=== PATIENT | female | born 1985 | race African-American/Black ===

== ENCOUNTER → 2020-04-10 16:47 | Outpatient (CLI) | payer OTHER, MEDICAID, SELFPAY ==
[2020-04-11 09:35] LABS: COVID19 Sendout NOT DETECTED (Not Detect)
== END ==
PROVIDERS: Visit Provider Physician Assistant
DX: Z11.59 Encounter for screening for other viral diseases (principal)
CPT/HCPCS: 87635

== ENCOUNTER → 2021-10-02 15:34 | Outpatient (CLI) | payer OTHER, MEDICAID, SELFPAY ==
--- NOTE | 2021-10-02 | DI.US.S_ITS ---
PROCEDURE: US PELVIC COMPLETE INDICATIONS: Excessive bleeding in the premenopausal period TECHNIQUE: Real-time scanning was performed of the pelvic organs, with image documentation. Additional endovaginal scanning was necessary due to incomplete visualization of the adnexal and endometrial structures by transabdominal scanning. COMPARISON: None. FINDINGS: Uterus: Uterus measures 9.4 x 4.8 x 5.7 cm and the endometrial complex is thickened at 17.3 mm. No fibroids identified. Ovaries: Right ovary measures 5.3 x 1.9 x 2.7 cm and the left 3.6 x 1.9 x 1.8 cm. Complex cyst involving the right ovary measuring 1.8 x 1.9 x 2.1 cm. The left ovary is grossly normal. Other: No pathologic free abdominal or pelvic fluid. IMPRESSION: 1. Abnormal thickening of the endometrial complex at 17.3 mm. Short-term follow-up pelvic ultrasound in 6 weeks is recommended to assess for interval thinning. 2. Probable hemorrhagic right ovarian cyst which can also be reassessed on follow-up exam. We strive to produce accurate, complete, and clear reports of imaging services. To assist us in improving patient care, this report was composed using standard report templates and voice recognition software. Therefore, it may contain abnormal punctuation, insertions and/or omissions. Occasional wrong-word or sound-alike substitutions may occur. Though we review the report and make efforts to correct it, we do recommend that the report be read carefully in proper context to recognize any text inaccuracies. Dictated by: Izaiah MARINO Interpreted: Ede White MD on 10/02/2021 at 17:12 Transcribed by: CLAUDETTE on 10/02/2021 at 17:14 Approved by: Ede White M.D. on 10/02/2021 at 17:25
== END ==
PROVIDERS: PCP Family Medicine; Referring Provider Family Medicine; Visit Provider Obstetrics & Gynecology
DX: N92.4 Excessive bleeding in the premenopausal period (principal); N94.6 Dysmenorrhea, unspecified; R93.89 Abnormal findings on diagnostic imaging of other specified body structures
CPT/HCPCS: 76830; 76856

== ENCOUNTER → 2021-10-23 09:57 | Outpatient (CLI) | payer OTHER, MEDICAID, SELFPAY ==
[2021-10-23 12:21] LABS: COVID19 -Nasal RAPID POSITIVE (Negative)
== END ==
PROVIDERS: PCP Family Medicine; Visit Provider Nurse Practitioner Critical Care Medicine
DX: U07.1 COVID-19 (principal); Z20.822 Contact with and (suspected) exposure to COVID-19; M79.10 Myalgia, unspecified site
CPT/HCPCS: 87635